=== PATIENT | male | born 1990 | race Two or more races ===

== ENCOUNTER 2019-06-05 23:27 | Emergency (ER) | payer MEDICAID, OTHER ==
[~2019-06-05] VITALS: Ht 182.9 cm; Wt 88.0 kg
[2019-06-06 00:23] LABS: Basophils # (auto) 0.1 uL; Basophils % (auto) 0.6 % (0.0-2.0); Eosinophils # (auto) 0.2 uL; Eosinophils % (auto) 1.5 % (0.0-7.0); Hematocrit 46.4 % (41.0-53.0); Hemoglobin 16.2 g/dL (13.5-17.5); Lymphocytes # (auto) 2.9 uL; Lymphocytes % (auto) 28.3 % (10.0-50.0); Mean Corpuscular Hemoglobin 30.7 pg (28.0-32.0); Mean Corpuscular Hgb Conc. 34.9 g/dL (32.0-36.0); Mean Corpuscular Volume 88.1 fL (80.0-100.0); Monocytes # (auto) 0.6 uL; Monocytes % (auto) 5.8 % (0.0-12.0); Neutrophils # (auto) 6.5 uL; Neutrophils % (auto) 63.8 % (37.0-80.0); Nucleated Red Blood Cells % 0.1 %; Platelet Count (auto) 317 10^3/uL (140-450); Red Blood Cells 5.26 10^6/uL (4.5-5.90); Red Cell Distribution Width 12.6 % (11.8-14.3); White Blood Cell 10.1 10^3/uL (4.4-10.8)
[2019-06-06 00:57] LABS: Albumin 4.9 g/dL (3.4-5.0); Anion Gap 13 (5-15); Blood Urea Nitrogen 16 mg/dL (7-18); Calcium 9.8 mg/dL (8.5-10.1); Carbon Dioxide 22 mmol/L (21-32); Chloride 104 mmol/L (98-107); Glucose 92 mg/dL (74-106); Potassium 3.2 mmol/L (3.5-5.1); Sodium 139 mmol/L (136-145)
[2019-06-06 01:00] LABS: Alanine Aminotransferase 71 U/L (16-61); Aspartate Aminotransferase 30 U/L (15-37); GFR African American 89 mL/min; GFR Non-African American 73 mL/min
[2019-06-06 01:05] LABS: Alkaline Phosphatase 57 U/L (45-117); Bilirubin, Total 0.5 mg/dL (0.2-1.0)
[2019-06-06 09:50] VITALS: BP 111/65
[2019-06-06 16:35] LABS: Urine Amorphous Crystal FEW /hpf (None Seen); Urine Bacteria NONE SEEN /hpf (None Seen); Urine Blood Negative /uL (Negative); Urine Mucus FEW (None Seen); Urine Specific Gravity 1.035 (1.001-1.035); Urine WBC 6 /hpf (0 - 3)
[2019-06-06 16:57] LABS: Amphetamine Screen, Urine NEGATIVE (NEGATIVE); Barbiturate Scree,Urine NEGATIVE (NEGATIVE); Benzodiazephine Screen, Urine NEGATIVE (NEGATIVE); Cannabinoid Screen, Urine NEGATIVE (NEGATIVE); Cocaine Screen, Urine NEGATIVE (NEGATIVE); Opiate Scree,Urine NEGATIVE (NEGATIVE); Phencyclidine Screen, Urine NEGATIVE (NEGATIVE)
== END 2019-06-06 10:23 | disposition home or self-care (01) ==
LOC: ER 23:30
DX: F41.8 Other specified anxiety disorders (principal); R10.9 Unspecified abdominal pain; F17.210 Nicotine dependence, cigarettes, uncomplicated; Z87.442 Personal history of urinary calculi; Z91.010 Allergy to peanuts
CPT/HCPCS: 36415; 70450; 71045; 74018; 80053; 80307; 81001; 84484; 85025; 93005